=== PATIENT | male | born 1945 | race Caucasian/White ===

== ENCOUNTER → 2017-01-15 | Day surgery (SDC) | payer BC ==
[~2017-01-15] MED LIST: DEXAMETHASONE SOD PHOS 4 MG/ML VIAL ONE; EPINEPHrine HCL (1:1000) 1 MG/ML VIAL ONE; LACTATED RINGER'S 1000 ML INJ 1,000 ML ONE; MIDAZOLAM HCL 2 MG/2 ML VIAL ONE; MOXIFLOXACIN 0.5% OPHT SOLN 3 ML BTL ONE; ONDANSETRON HCL 4 MG/2 ML VIAL IV PUSH ONE; PHENYLEPHRINE HCL 10% OPTH SOLN 5 ML BTL ONE; PROPOFOL 200 MG/20 ML AMP IV ONE; SODIUM CHLORIDE 0.9% INJ 10 ML ONE; TETRACAINE 0.5% OPTH SOLN 15 ML BTL ONE; TOBRAMYCIN/DEXAMETHASONE OPTH OINT 3.5 GM TUBE ONE; ceFAZolin INJ 1,000 MG VIAL ONE; prednisoLONE ACETATE 1% OPHT SUSP 5 ML BTL ONE
--- NOTE | 2017-01-16 18:08 | MP ---
cc: DIOGO CARMEN MD DATE OF SURGERY: 01/15/2017. 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 OPERATIVE PROCEDURE PERFORMED: Pars vitrectomy, retinal detachment repair, endolaser, air-fluid exchange, insertion of 20% SF6 gas, right eye. SURGEON: Diogo Carmen MD. COMPLICATIONS: None. BLOOD LOSS: Less than 1 cc. ANESTHESIA: Dr. Winters/ general. INDICATIONS FOR THE PROCEDURE: This is a delightful patient who presented with a large rhegmatogenous retinal detachment with multiple retinal defects affecting his macula. The patient elected for surgical correction to salvage any remaining visual acuity. The patient understands the risks, benefits and alternatives to surgery and wishes to proceed. DESCRIPTION OF THE PROCEDURE IN DETAIL: After informed consent was obtained, the patient was brought to the operating room and general anesthesia was established. The right eye was prepped and draped in sterile fashion with Betadine in the conjunctival fornix. A deep port pars plana vitrectomy was established with self-retaining infusion cannula. Core vitreous was evacuated and vitreous traction to the peripheral retina was relieved. PFO was instilled and subretinal fluid removed. The retina was reattached quite nicely and vitreous traction to the retinal tears was relieved. Endolaser was applied surrounding multiple retinal defects 360 degrees in the far periphery. Air-fluid exchange was carried out and the retina was noted to remain nicely attached. 20% SF6 gas was instilled. Trocars were removed and sclerotomies closed. Subconjunctival injections of Ancef and dexamethasone were given. The eye was patched with Tobramycin ointment. The patient was brought to the recovery room in stable condition and will continue followup with [facility] for his postoperative care. MD UNIQUE Don/JOSE F /5:31 PM /6:05 PM
== END | disposition home or self-care (01) ==
LOC: ESDC 08:23
PROVIDERS: ATTEND Ophthalmology
DX: H33.021 Retinal detachment with multiple breaks, right eye (principal)
CPT/HCPCS: 00145; 67108; J0171; J0690; J1100; J2250; J2405; J3010; J7120